=== PATIENT | female | born 1990 | race Asian ===

== ENCOUNTER 2018-02-04 16:13 | Emergency (ER) | payer OTHER ==
[~2018-02-04] VITALS: Ht 154.9 cm; Wt 63.5 kg
[2018-02-04] MEDS ORDERED: IV NORMAL SALINE 1000ML BAG 1,000 ML IV SCH (19:44)
[2018-02-04] MEDS ORDERED: PROCHLORPERAZINE 10 MG/2 ML VIAL. IV ONE (19:45)
[2018-02-04 20:20] LABS: BILIRUBIN,URINE NEGATIVE (NEG); CLARITY,URINE CLEAR; COLOR,URINE YELLOW; NITRITE,URINE NEGATIVE (NEG); PROTEIN,URINE NEGATIVE (NEG-TRACE)
[2018-02-04 20:21] LABS: BASO % 1 % (0-3); EOS # 0.1 x10^3/uL (0.0-0.7); EOS % 2 % (0-3); HEMATOCRIT 37.5 % (36.0-47.0); HEMOGLOBIN 12.8 g/dL (12.0-15.5); LYMPH # 1.9 x10^3/uL (1.0-4.8); LYMPH % 29 % (24-48); MEAN CORPUSCULAR HEMOGLOBIN 31 pg (25-35); MEAN CORPUSCULAR HGB CONC 34 g/dL (31-37); MEAN CORPUSCULAR VOLUME 89 fL (79-100); MONO # 0.8 x10^3/uL (0.0-1.1); MONO % 11 % (0-9); NEUT # 3.8 x10^3uL (1.8-7.7); NEUT % 57 % (31-73); PLATELET COUNT 148 x10^3/uL (140-400); RED CELL DISTRIBUTION WIDTH 13.7 % (11.5-14.5); WHITE BLOOD COUNT 6.7 x10^3/uL (4.0-11.0)
[2018-02-04 20:33] LABS: CALCIUM 9.1 mg/dL (8.5-10.1); CREATININE 0.5 mg/dL (0.6-1.0); GFR 145.9; POTASSIUM 3.8 mmol/L (3.5-5.1)
[2018-02-04 20:35] LABS: BACTERIA,URINE FEW /HPF (0-FEW); RBC,URINE OCC /HPF (0-2); SQUAMOUS EPITHELIAL CELL,UR FEW /LPF
[2018-02-04 20:44] LABS: ALBUMIN 3.9 g/dL (3.4-5.0); ALBUMIN/GLOBULIN RATIO 0.9 (1.0-1.7); TOTAL BILIRUBIN 0.6 mg/dL (0.2-1.0); TOTAL PROTEIN 8.3 g/dL (6.4-8.2)
[2018-02-04 20:48] LABS: PLT ESTIMATE ADEQUATE (ADEQUATE)
[2018-02-04 20:50] LABS: PROTHROMBIN TIME PATIENT 14.6 SEC (11.7-14.0)
[2018-02-04 21:00] VITALS: BP 104/60
[2018-02-04] MEDS ORDERED: AZIT250T6 PO (22:12)
[2018-02-04] MEDS ORDERED: NEOM10SO7 OT (22:12)
[2018-02-04] MEDS ORDERED: CARB-100 LEFT EAR (22:12)
[2018-02-04] MEDS ORDERED: METO10TA81 PO (22:12)
[2018-02-04] MEDS ORDERED: ACET325T9 PO (22:13)
--- NOTE | 2018-02-04 22:13 | PHYS DOC ---
Past Medical History Past Medical History: No Pertinent History Past Surgical History: No Surgical History Alcohol Use: None Drug Use: None Adult General Chief Complaint Chief Complaint: FEVER HPI HPI Patient is a 27 year old female who presents with multiple complaints. #1 she feels like she's had a fever for the past several days along with some cough and congestion. #2 some nausea and vomiting. No blood in the stool or emesis. Diffuse abdominal pain. No association with particular foods such as fatty once, or spicy ones. #3 vaginal bleeding. Patient is approximately 8 weeks with her last menstrual period being December 05, 2017. Patient has had a positive home test. Patient is 2 para 2002 due to a twin . #4 decreased hearing in left ear and left ear pain that started today. Nothing seems to make this better or worse. [] Review of Systems Review of Systems Constitutional: See history of present illness, denies chills or Reiger's[] Eyes: Denies change in visual acuity, redness, or eye pain [] HENT: Denies nasal congestion or sore throat [] Respiratory: Denies cough or shortness of breath [] Cardiovascular: No additional information not addressed in HPI [] GI: See history of present illness[] : Denies dysuria or hematuria, see history of present illness [] Musculoskeletal: Denies back pain or joint pain [] Integument: Denies rash or skin lesions [] Neurologic: Denies headache, focal weakness or sensory changes [] Endocrine: Denies polyuria or polydipsia [] All other systems were reviewed and found to be within normal limits, except as documented in this note. Current Medications Current Medications Current Medications Medications (Trade) Dose Ordered Sig/Devan Start Time Stop Time Status Last Admin Dose Admin Prochlorperazine Edisylate (Compazine) 5 mg 1X ONCE 02/04/18 19:45 02/04/18 19:46 UNV Sodium Chloride 1,000 ml @ 1,000 mls/hr Q1H 02/04/18 19:44 02/04/18 20:43 DC 02/04/18 20:35 1,000 MLS/HR Allergies Allergies Allergies Coded Allergies Type Severity Reaction Last Updated Verified No Known Drug Allergies 02/04/18 No Physical Exam Physical Exam Constitutional: Well developed, well nourished, no acute distress, non-toxic appearance. [] HENT: Normocephalic, atraumatic, bilateral external ears normal, left TM obscured by cerumen. Mild pain with tragus tug. Oropharynx moist, no oral exudates, nose normal. [] Eyes: PERRLA, EOMI, conjunctiva normal, no discharge. [] Neck: Normal range of motion, no tenderness, supple, no stridor. [] Cardiovascular:Heart rate regular rhythm, no murmur [] Lungs & Thorax: Bilateral breath sounds clear to auscultation [] Abdomen: Bowel sounds normal, soft, mild epigastric tenderness, no masses, no pulsatile masses. Negative Wilson's sign, no McBurney's point tenderness exam: Performed with research attorney: External genitalia normal, no masses no external bleeding. Vaginal vault: Normal, no blood in the vault. Cervix: Parous os, no cervical motion tenderness, no bleeding[] Skin: Warm, dry, no erythema, no rash. [] Back: No tenderness, no CVA tenderness. [] Extremities: No tenderness, no cyanosis, no clubbing, ROM intact, no edema. [] Neurologic: Alert and oriented X 3, normal motor function, normal sensory function, no focal deficits noted. [] Psychologic: Affect normal, judgement normal, mood normal. [] Current Patient Data Vital Signs Vital Signs Date Time Temp Pulse Resp B/P (MAP) Pulse Ox O2 Delivery O2 Flow Rate FiO2 02/04/18 18:37 98.3 69 16 117/79 (92) 100 Room Air 98.3 Lab Values Laboratory Tests Test 02/04/18 19:23 02/04/18 19:24 02/04/18 20:15 02/04/18 20:30 Urine Collection Type Unknown Urine Color Yellow Urine Clarity Clear Urine pH 6.0 Urine Specific [place] 1.015 Urine Protein Negative mg/dL (NEG-TRACE) Urine Glucose (UA) Negative mg/dL (NEG) Urine Ketones (Stick) Negative mg/dL (NEG) Urine Blood Trace (NEG) Urine Nitrite Negative (NEG) Urine Bilirubin Negative (NEG) Urine Urobilinogen Dipstick 1.0 mg/dL (0.2 mg/dL) Urine Leukocyte Esterase Moderate (NEG) Urine RBC Occ /HPF (0-2) Urine WBC 1-4 /HPF (0-4) Urine Squamous Epithelial Cells Few /LPF Urine Bacteria Few /HPF (0-FEW) Urine Mucus Slight /LPF POC Urine HCG, Qualitative Hcg positive (Negative) White Blood Count 6.7 x10^3/uL (4.0-11.0) Red Blood Count 4.20 x10^6/uL (3.50-5.40) Hemoglobin 12.8 g/dL (12.0-15.5) Hematocrit 37.5 % (36.0-47.0) Mean Corpuscular Volume 89 fL (79-100) Mean Corpuscular Hemoglobin 31 pg (25-35) Mean Corpuscular Hemoglobin Concent 34 g/dL (31-37) Red Cell Distribution Width 13.7 % (11.5-14.5) Platelet Count 148 x10^3/uL (140-400) Neutrophils (%) (Auto) 57 % (31-73) Lymphocytes (%) (Auto) 29 % (24-48) Monocytes (%) (Auto) 11 % (0-9) H Eosinophils (%) (Auto) 2 % (0-3) Basophils (%) (Auto) 1 % (0-3) Neutrophils # (Auto) 3.8 x10^3uL (1.8-7.7) Lymphocytes # (Auto) 1.9 x10^3/uL (1.0-4.8) Monocytes # (Auto) 0.8 x10^3/uL (0.0-1.1) Eosinophils # (Auto) 0.1 x10^3/uL (0.0-0.7) Basophils # (Auto) 0.0 x10^3/uL (0.0-0.2) Platelet Estimate Adequate (ADEQUATE) Giant Platelets Occ Maternal Serum HCG Beta Subunit 183059 mIU/mL (0-5) H Sodium Level 136 mmol/L (136-145) Potassium Level 3.8 mmol/L (3.5-5.1) Chloride Level 101 mmol/L (98-107) Carbon Dioxide Level 21 mmol/L (21-32) Anion Gap 14 (6-14) Blood Urea Nitrogen 9 mg/dL (7-20) Creatinine 0.5 mg/dL (0.6-1.0) L Estimated GFR (Cockcroft-Gault) 145.9 BUN/Creatinine Ratio 18 (6-20) Glucose Level 95 mg/dL (70-99) Calcium Level 9.1 mg/dL (8.5-10.1) Total Bilirubin 0.6 mg/dL (0.2-1.0) Aspartate Amino Transferase (AST) 32 U/L (15-37) Alanine Aminotransferase (ALT) 40 U/L (14-59) Alkaline Phosphatase 63 U/L (46-116) Total Protein 8.3 g/dL (6.4-8.2) H Albumin 3.9 g/dL (3.4-5.0) Albumin/Globulin Ratio 0.9 (1.0-1.7) L Lipase 162 U/L (73-393) Prothrombin Time 14.6 SEC (11.7-14.0) H Prothrombin Time INR 1.2 (0.8-1.1) H Laboratory Tests 02/04/18 20:15 Laboratory Tests 02/04/18 20:15 EKG EKG [] Radiology/Procedures Radiology/Procedures Pelvic ultrasound showed a 7 week 3 day IUP with subchorionic small hemorrhage. There is positive heart motion. Chest and performed of the gallbladder showed gallstones, no evidence of choledocholithiasis, no evidence of cholecystitis[] Course & Med Decision Making Course & Med Decision Making Pertinent Labs and Imaging studies reviewed. (See chart for details) ED course: Patient arrived, was placed in bed, and tolerated exam well. Patient had IV fluids as well as antiemetics administered which didn't improve the nausea. Patient was by mouth tolerant while in the emergency department. Patient had ultrasound performed while in the exam room which is noted above and tolerated the procedure well. After return of the lab and imaging studies, these were discussed with the patient and her who voiced understanding. All questions were answered. Medical decision making: There is no evidence of a septic miscarriage. This appears to be a threatened miscarriage given the bleeding and the small subchorionic hemorrhage. No evidence of Rh mismatch given that the patient is AB +. No evidence of significant neurologic slight abnormalities nor starvation state given that the patient is ketone negative and her urine. No evidence of urinary tract infection. Patient also appears to have cerumen impaction that was improved with the irrigation. Will prescribe treatment for this as well as some otitis externa which may of developed as the patient was trying to remove the cerumen blockage. No evidence of mastoiditis.[] Isaac Disclaimer Dragon Disclaimer This electronic medical record was generated, in whole or in part, using a voice recognition dictation system. Departure Departure Impression: Primary Impression: Threatened miscarriage Additional Impressions: Cough Febrile illness Cerumen impaction Otitis externa Nausea and vomiting Disposition: 01 HOME, SELF-CARE Condition: GOOD Referrals: JUAQUIN ROJAS MD (PCP) Follow-up in 2 days Patient Instructions: Cerumen Impaction, Cough, Adult, Fever, Nausea and Vomiting, Otitis Externa, Threatened Miscarriage Additional Instructions: Drink plenty of fluids, frequent small sips. No fatty foods, no milk, and no pepper for the next 48 hours. For the next 48 hours eat a diet rich in carbohydrates with foods such as bananas, rice, applesauce, and toast. Follow-up with your regular doctor in 2 days. Do not use any ibuprofen or naproxen while you are . Do not put anything in the vaginano tampons, no douching, no sexual intercourse. Return to the ER if worsening pain, unable to tolerate oral intake, worsening vaginal bleeding, or any other concerns. Scripts Acetaminophen (TYLENOL) 325 Mg Tablet 1-2 TAB PO QID, #60 TAB 0 Refills Prov: HOLLIS MCMILLAN DO 02/04/18 Neomycin/Polymyxin B Sulf/Hc (AQBZXGWB-[id number]-FN EAR SOLN) 10 Ml Solution 4 DROP OT QID for 7 Days, MISC Prov: HOLLIS MCMILLAN DO 02/04/18 Azithromycin (AZITHROMYCIN TABLET) 250 Mg Tablet 1 PKG PO UD, #6 TAB Prov: DEANNMICHELLEHOLLIS THOMPSON DO 02/04/18 Carbamide Peroxide (Murine Ear Drops) 15 Ml Drops 5-10 DROP LEFT EAR BID for 4 Days, DROP Prov: HOLLIS MCMILLAN DO 02/04/18 Metoclopramide Hcl (REGLAN) 10 Mg Tablet 10 MG PO QIDACHS, #30 TAB 0 Refills Prov: HOLLIS MCMILLAN DO 02/04/18 Problem Qualifiers Additional Impressions: Cerumen impaction Laterality: left Qualified Codes: H61.22 - Impacted cerumen, left ear Otitis externa Otitis externa type: unspecified type Chronicity: acute Laterality: left Qualified Codes: H60.502 - Unspecified acute noninfective otitis externa, left ear Nausea and vomiting Vomiting type: unspecified Vomiting Intractability: non-intractable Qualified Codes: R11.2 - Nausea with vomiting, unspecified HOLLIS MCMILLAN DO Feb 04, 2018 22:13
--- NOTE | 2018-02-04 23:31 | RAD ---
Examination: PREG 1ST TRIMESTER History: spotting, , upper abd pain Comparison/Correlation: None Findings: Transabdominal pelvic ultrasound exam was performed. Uterus measures 10 cm x 6.2 cm x 5.4 cm. Myometrium is unremarkable. Single intrauterine gestation is present with heart rate of 169 bpm. [place]-rump length of 1.1 cm correspond to 7 weeks 2 days gestation. Yolk sac identified. Gestational sac is unremarkable. Subchorionic hemorrhage is present measuring 1.9 cm x 1.4 cm x 0.3 cm. Right ovary measures 2.5 cm x 2.5 cm which is seen. Left ovary measures 2.17 x 2 cm x 1.5 cm. Left adnexal follicle measuring 1.3 cm diameter is present. No suspicious adnexal process. No evidence of ovarian torsion. Normal spectral Doppler imaging of the ovaries identified. Color Doppler imaging is unremarkable. Cholelithiasis is present without findings of cholecystitis. Impression: Single living intrauterine gestation with crown-rump length corresponding to 7 weeks 2 day gestation. Small subchorionic hemorrhage. Electronically signed by: Abenr Martinez MD (02/04/2018 11:27 PM) [facility]
[2018-02-06 13:25] LABS: GC PROBE Negative (Negative)
== END 2018-02-04 22:37 | disposition home or self-care (01) ==
LOC: ER 16:13
DX: O20.0 Threatened abortion (principal); O21.9 Vomiting of pregnancy, unspecified; H61.22 Impacted cerumen, left ear; H60.92 Unspecified otitis externa, left ear; Z3A.08 8 weeks gestation of pregnancy
CPT/HCPCS: 36415; 76801; 80053; 81001; 81025; 83690; 84702; 85025; 85610; 86900; 86901; 87491; 87591; 96360; 99284; J7030; Q0111

== ENCOUNTER 2018-05-21 19:59 | Emergency (ER) | payer OTHER ==
[~2018-05-21] VITALS: Ht 147.3 cm; Wt 65.8 kg
[~2018-05-21 19:59] MED LIST: ACET325T9 PO; AZIT250T6 PO; CARB-100 LEFT EAR; METO10TA81 PO; NEOM10SO7 OT
[2018-05-21] MEDS ORDERED: AMOX1TAB61 PO (21:22)
[2018-05-21] MEDS ORDERED: NEOM10DR32 EACH EAR (21:22)
--- NOTE | 2018-05-21 21:22 | PHYS DOC ---
Past Medical History Past Medical History: GERD, Hypothyroid Past Surgical History: No Surgical History Alcohol Use: None Drug Use: None Adult General Chief Complaint Chief Complaint: EARACHE/EAR PAIN HPI HPI Patient is a 28 year old female who presents with left ear pain since four o' clock this afternoon. Patient describes the pain as shooting and constant and rates it to be 10/10. Patient states that her left ear was itchy this morning so she used a Q-tip to itch it. Patient denies recent swimming. Patient states that she had a similar episode about three months ago for which she was treated with antibiotic drops. Patient denies any drainage or blood from her left ear. She also reports nausea and three episodes of nonbloody, nonbilious vomiting today. Patient is currently 23 weeks . She denies any abdominal pain, diarrhea, vaginal discharge, or vaginal bleeding. Review of Systems Review of Systems Constitutional: Denies fever or chills. Eyes: Denies change in visual acuity or eye pain. HENT: Denies nasal congestion or sore throat. Respiratory: Reports cough. Denies shortness of breath. Cardiovascular: Denies chest pain or palpitations. GI: Denies abdominal pain or diarrhea. : Denies dysuria or hematuria. Musculoskeletal: Denies back pain or joint pain. Integument: Denies rash or skin lesions. Neurologic: Denies focal weakness or sensory changes Complete systems were reviewed and found to be within normal limits, except as documented in this note. Current Medications Current Medications Current Medications Medications (Trade) Dose Ordered Sig/[facility] Start Time Stop Time Status Last Admin Dose Admin Acetaminophen (Tylenol) 500 mg 1X ONCE 05/21/18 21:30 05/21/18 21:31 05/21/18 21:21 500 MG Dexamethasone (Decadron) 10 mg 1X ONCE 05/21/18 21:30 05/21/18 21:31 05/21/18 21:21 10 MG Ondansetron HCl (Zofran Odt) 4 mg 1X ONCE 05/21/18 21:30 05/21/18 21:31 05/21/18 21:21 4 MG Allergies Allergies Allergies Coded Allergies Type Severity Reaction Last Updated Verified No Known Drug Allergies 02/04/18 No Physical Exam Physical Exam Constitutional: Well developed, well nourished, no acute distress. HENT: Normocephalic, atraumatic,oropharynx moist, no oral exudates. Cerumen noted in bilateral ear canals. Erythema noted in left ear canal. Subjective pain noted with pulling of the tragus and pinna. Eyes: PERRL,conjunctiva normal without erythema. Neck: Normal range of motion, no tenderness, supple. Cardiovascular:Heart rate regular rhythm, no murmur. Lungs & Thorax: Bilateral breath sounds clear to auscultation [] Abdomen: Gravid uterus, soft, no tenderness. Skin: Warm, dry, no rash. Back: No tenderness, no CVA tenderness. Extremities: No tenderness, ROM intact, no edema. [] Neurologic: Alert and oriented X 3, normal motor function, normal sensory function, no focal deficits noted. Psychologic: Affect normal. Normal speech. Current Patient Data Vital Signs Vital Signs Date Time Temp Pulse Resp B/P (MAP) Pulse Ox O2 Delivery O2 Flow Rate FiO2 05/21/18 20:16 98.4 94 20 110/66 (81) 100 Room Air 98.4 EKG EKG [] Radiology/Procedures Radiology/Procedures [] Course & Med Decision Making Course & Med Decision Making Pertinent Labs and Imaging studies reviewed. (See chart for details) Patient is a 28 year old female who presents to the ED for evaluation of left ear pain. Patient treated with Dexamethasone, Zofran and Tylenol in the ED for swelling, pain and nausea. Due to erythema in the left ear canal, history of otitis externa, and pain with pulling of the tragus and pinna, patient will be prescribed antibiotic ear drops for otitis externa. Patient instructed to take Tylenol as needed at home for pain and discomfort. Will give patient a prescription for Zofran to take for nausea as needed. A prescription will be given for Augmentin because of possibility of otitis media, as the TM cannot be fully visualized due to large amount of cerumen. Patient was instructed to wait 48 hours after starting antibiotic ear drops before taking the Augmentin to see if symptoms improve with drops. Patient stable for discharge with outpatient follow-up with PCP. Discussed findings and plan with patient and family, who acknowledge understanding and agreement. Dragon Disclaimer Dragon Disclaimer This electronic medical record was generated, in whole or in part, using a voice recognition dictation system. Departure Departure Impression: Primary Impression: Otitis externa Disposition: 01 HOME, SELF-CARE Condition: STABLE Referrals: JUAQUIN ROJAS MD (PCP) Patient Instructions: Otitis Externa, [id number] Additional Instructions: Hold oral (Augmentin) antibiotics for 48 hours. If symptoms worsen or for fever > 100.3 F after 48 hours then start antibiotics as prescribed. Take Tylenol for pain or discomfort. Scripts Amoxicillin/Potassium Clav (AUGMENTIN 875-125 TABLET) 1 Each Tablet 1 TAB PO BID, #14 TAB Prov: NISH CARVAJAL DO 05/21/18 Neomycin/Polymyxin B Sulf/Hc (GCQSTSSP-RYKOAMBXN-PD EAR SUSP) 10 Ml Drops.susp 4 DROP EACH EAR TID, #10 ML Prov: NISH CARVAJAL DO 05/21/18 Problem Qualifiers Primary Impression: Otitis externa Otitis externa type: unspecified type Chronicity: acute Laterality: left Qualified Codes: H60.502 - Unspecified acute noninfective otitis externa, left ear NISH CARVAJAL DO May 21, 2018 21:22
[2018-05-21 21:25] VITALS: BP 116/59
[2018-05-21] MEDS ORDERED: ONDANSETRON ODT 4 MG TAB.RAPDIS. PO ONE (21:30)
[2018-05-21] MEDS ORDERED: DEXAMETHASONE 4 MG TABLET PO ONE (21:30)
[2018-05-21] MEDS ORDERED: ACETAMINOPHEN 500 MG TABLET PO ONE (21:30)
== END 2018-05-21 21:55 | disposition home or self-care (01) ==
LOC: ER 19:59
DX: O26.892 Other specified pregnancy related conditions, second trimester (principal); H60.502 Unspecified acute noninfective otitis externa, left ear; O21.9 Vomiting of pregnancy, unspecified; O99.612 Diseases of the digestive system complicating pregnancy, second trimester; K21.9 Gastro-esophageal reflux disease without esophagitis; O99.282 Endocrine, nutritional and metabolic diseases complicating pregnancy, second trimester; E03.9 Hypothyroidism, unspecified; Z3A.23 23 weeks gestation of pregnancy
CPT/HCPCS: 99284; J8540; Q0162

== ENCOUNTER 2019-08-23 15:07 | Emergency (ER) | payer OTHER ==
[~2019-08-23] VITALS: Ht 149.9 cm; Wt 67.2 kg
[~2019-08-23 15:07] MED LIST changes: +AMOX1TAB61 PO; +NEOM10DR32 EACH EAR
[2019-08-23 15:56] LABS: BILIRUBIN,URINE NEGATIVE (NEG); COLOR,URINE YELLOW; NITRITE,URINE NEGATIVE (NEG); PROTEIN,URINE NEGATIVE (NEG-TRACE); UROBILINOGEN,URINE 0.2 mg/dL (0.2 mg/dL)
[2019-08-23 15:57] LABS: CLARITY,URINE HAZY
[2019-08-23 16:13] LABS: BACTERIA,URINE 0 /HPF (0-FEW); RBC,URINE TNTC /HPF (0-2); SQUAMOUS EPITHELIAL CELL,UR MOD /LPF
[2019-08-23 16:14] LABS: BASO # 0.1 x10^3/uL (0.0-0.2); BASO % 1 % (0-3); EOS # 0.1 x10^3/uL (0.0-0.7); EOS % 1 % (0-3); HEMATOCRIT 32.1 % (36.0-47.0); HEMOGLOBIN 11.1 g/dL (12.0-15.5); LYMPH # 1.9 x10^3/uL (1.0-4.8); LYMPH % 19 % (24-48); MEAN CORPUSCULAR HEMOGLOBIN 29 pg (25-35); MEAN CORPUSCULAR HGB CONC 35 g/dL (31-37); MEAN CORPUSCULAR VOLUME 83 fL (79-100); MONO # 0.9 x10^3/uL (0.0-1.1); MONO % 9 % (0-9); NEUT # 6.7 x10^3/uL (1.8-7.7); NEUT % 69 % (31-73); PLATELET COUNT 228 x10^3/uL (140-400); RED BLOOD COUNT 3.86 x10^6/uL (3.50-5.40); RED CELL DISTRIBUTION WIDTH 14.1 % (11.5-14.5); WHITE BLOOD COUNT 9.6 x10^3/uL (4.0-11.0)
[2019-08-23 16:24] LABS: CALCIUM 8.3 mg/dL (8.5-10.1); CREATININE 0.7 mg/dL (0.6-1.0); GFR 97.6
[2019-08-23 16:27] LABS: ALBUMIN 3.6 g/dL (3.4-5.0); ALBUMIN/GLOBULIN RATIO 0.9 (1.0-1.7); TOTAL BILIRUBIN 0.3 mg/dL (0.2-1.0); TOTAL PROTEIN 7.6 g/dL (6.4-8.2)
[2019-08-23] MEDS ORDERED: IV NORMAL SALINE 1000ML BAG 1,000 ML IV ONE (16:30)
[2019-08-23 16:49] LABS: PREG TEST PT QUAL NEGATIVE (NEG)
[2019-08-23 17:51] VITALS: BP 108/71
[2019-08-23] MEDS ORDERED: DOCU-109 PO (18:02)
[2019-08-23] MEDS ORDERED: FERR325T14 PO (18:02)
--- NOTE | 2019-08-24 11:23 | PHYS DOC ---
Past Medical History Past Medical History: Hypothyroid Past Surgical History: No Surgical History Smoking Status: Never Smoker Alcohol Use: None Drug Use: None General Adult EDM: Chief Complaint: DIZZY/LIGHT HEADED HPI: HPI: Patient is a 29 year old [f__sex] who presents with [] Review of Systems: Review of Systems: Constitutional: Denies fever or chills. [] Eyes: Denies change in visual acuity. [] HENT: Denies nasal congestion or sore throat. [] Respiratory: Denies cough or shortness of breath. [] Cardiovascular: Denies chest pain or edema. [] GI: Denies abdominal pain, nausea, vomiting, bloody stools or diarrhea. [] : Denies dysuria. [] Musculoskeletal: Denies back pain or joint pain. [] Integument: Denies rash. [] Neurologic: Denies headache, focal weakness or sensory changes. [] Endocrine: Denies polyuria or polydipsia. [] Lymphatic: Denies swollen glands. [] Psychiatric: Denies depression or anxiety. [] Heart Score: Risk Factors: Risk Factors: DM, Current or recent (<one month) smoker, HTN, HLP, family history of CAD, obesity. Risk Scores: Score 0 - 3: 2.5% MACE over next 6 weeks - Discharge Home Score 4 - 6: 20.3% MACE over next 6 weeks - Admit for Clinical Observation Score 7 - 10: 72.7% MACE over next 6 weeks - Early Invasive Strategies Current Medications: Current Medications Medications (Trade) Dose Ordered Sig/Devan Start Time Stop Time Status Last Admin Dose Admin Sodium Chloride 1,000 ml @ 0 mls/hr 1X ONCE 08/23/19 16:30 08/23/19 16:31 DC 08/23/19 16:40 999 MLS/HR Allergies: Allergies: Allergies Coded Allergies Type Severity Reaction Last Updated Verified No Known Drug Allergies 02/04/18 No Physical Exam: PE: Constitutional: Well developed, well nourished, no acute distress, non-toxic appearance. [] HENT: Normocephalic, atraumatic, bilateral external ears normal, oropharynx moist, no oral exudates, nose normal. [] Eyes: PERRLA, EOMI, conjunctiva normal, no discharge. [] Neck: Normal range of motion, no tenderness, supple, no stridor. [] Cardiovascular:Heart rate regular rhythm, no murmur [] Lungs & Thorax: Bilateral breath sounds clear to auscultation [] Abdomen: Bowel sounds normal, soft, no tenderness, no masses, no pulsatile masses. [] Skin: Warm, dry, no erythema, no rash. [] Back: No tenderness, no CVA tenderness. [] Extremities: No tenderness, no cyanosis, no clubbing, ROM intact, no edema. [] Neurologic: Alert and oriented X 3, normal motor function, normal sensory function, no focal deficits noted. [] Psychologic: Affect normal, judgement normal, mood normal. [] Current Patient Data: Labs: Laboratory Tests Test 08/23/19 15:49 08/23/19 16:07 Urine Collection Type Unknown Urine Color Yellow Urine Clarity Hazy Urine pH 6.0 (<5.0-8.0) Urine Specific [place] 1.010 (1.000-1.030) Urine Protein Negative mg/dL (NEG-TRACE) Urine Glucose (UA) Negative mg/dL (NEG) Urine Ketones (Stick) Negative mg/dL (NEG) Urine Blood Large (NEG) Urine Nitrite Negative (NEG) Urine Bilirubin Negative (NEG) Urine Urobilinogen Dipstick 0.2 mg/dL (0.2 mg/dL) Urine Leukocyte Esterase Moderate (NEG) Urine RBC Tntc /HPF (0-2) Urine WBC 1-4 /HPF (0-4) Urine Squamous Epithelial Cells Mod /LPF Urine Bacteria 0 /HPF (0-FEW) White Blood Count 9.6 x10^3/uL (4.0-11.0) Red Blood Count 3.86 x10^6/uL (3.50-5.40) Hemoglobin 11.1 g/dL (12.0-15.5) L Hematocrit 32.1 % (36.0-47.0) L Mean Corpuscular Volume 83 fL (79-100) Mean Corpuscular Hemoglobin 29 pg (25-35) Mean Corpuscular Hemoglobin Concent 35 g/dL (31-37) Red Cell Distribution Width 14.1 % (11.5-14.5) Platelet Count 228 x10^3/uL (140-400) Neutrophils (%) (Auto) 69 % (31-73) Lymphocytes (%) (Auto) 19 % (24-48) L Monocytes (%) (Auto) 9 % (0-9) Eosinophils (%) (Auto) 1 % (0-3) Basophils (%) (Auto) 1 % (0-3) Neutrophils # (Auto) 6.7 x10^3/uL (1.8-7.7) Lymphocytes # (Auto) 1.9 x10^3/uL (1.0-4.8) Monocytes # (Auto) 0.9 x10^3/uL (0.0-1.1) Eosinophils # (Auto) 0.1 x10^3/uL (0.0-0.7) Basophils # (Auto) 0.1 x10^3/uL (0.0-0.2) Sodium Level 141 mmol/L (136-145) Potassium Level 4.0 mmol/L (3.5-5.1) Chloride Level 108 mmol/L (98-107) H Carbon Dioxide Level 20 mmol/L (21-32) L Anion Gap 13 (6-14) Blood Urea Nitrogen 4 mg/dL (7-20) L Creatinine 0.7 mg/dL (0.6-1.0) Estimated GFR (Cockcroft-Gault) 97.6 BUN/Creatinine Ratio 6 (6-20) Glucose Level 98 mg/dL (70-99) Calcium Level 8.3 mg/dL (8.5-10.1) L Total Bilirubin 0.3 mg/dL (0.2-1.0) Aspartate Amino Transferase (AST) 23 U/L (15-37) Alanine Aminotransferase (ALT) 30 U/L (14-59) Alkaline Phosphatase 73 U/L (46-116) Total Protein 7.6 g/dL (6.4-8.2) Albumin 3.6 g/dL (3.4-5.0) Albumin/Globulin Ratio 0.9 (1.0-1.7) L Thyroid Stimulating Hormone (TSH) 0.070 uIU/mL (0.358-3.74) L Free Thyroxine 1.10 ng/dL (0.76-1.46) Serum Test, Qualitative Negative (NEG) Laboratory Tests 08/23/19 16:07 Laboratory Tests 08/23/19 16:07 Vital Signs: Vital Signs Date Time Temp Pulse Resp B/P (MAP) Pulse Ox O2 Delivery O2 Flow Rate FiO2 08/23/19 17:51 84 99 08/23/19 15:20 98.7 17 132/77 (95) Room Air 98.7 EKG: EKG: [] Radiology/Procedures: Radiology/Procedures: [] Course & Med Decision Making: Course & Med Decision Making Pertinent Labs and Imaging studies reviewed. (See chart for details) [] Dragon Disclaimer: Dragon Disclaimer: This electronic medical record was generated, in whole or in part, using a voice recognition dictation system. Departure Departure Impression: Primary Impression: Fatigue Disposition: HOME, SELF-CARE Condition: STABLE Patient Instructions: Weakness, [id number], Dizziness, [id number] Additional Instructions: Recommend following up with PCP for possible further testing such as autoimmune or depression screening. Scripts Docusate Sodium (COLACE) 100 Mg Capsule 1 CAP PO BID for 7 Days, #14 CAP 0 Refills Prov: PALMIRA MANTILLA MD 08/23/19 Ferrous Sulfate (FERROUS SULFATE) 325 Mg Tablet 1 TAB PO BID for 7 Days, #14 TAB 3 Refills Prov: PALMIRA MANTILLA MD 08/23/19 Justicifation of Admission Dx: Justifications for Admission: Justification of Admission Dx: No PALMIRA MANTILLA MD Aug 24, 2019 11:23
--- NOTE | 2019-08-26 06:53 | EKG ---
[facility] [address] [place] [address] Test Date: 2019-08-23 Test Time: 15:35:57 Pat Name: CANDELARIA MICHAEL Department: Room: Gender: F Adult Nurse Practitioner: : [id number] Requested By: PALMIRA MANTILLA Order Number: [id number] Reading MD: Measurements Intervals [place] Rate: 104 P: 28 CT: 144 QRS: 62 QRSD: 80 T: 32 QT: 330 QTc: 434 Interpretive Statements SINUS TACHYCARDIA OTHERWISE NORMAL ECG RI6.02 No previous ECG available for comparison
== END 2019-08-23 18:20 | disposition home or self-care (01) ==
LOC: ER 15:07
DX: R53.83 Other fatigue (principal); R42 Dizziness and giddiness; R11.0 Nausea; E03.9 Hypothyroidism, unspecified
CPT/HCPCS: 36415; 80053; 81001; 84439; 84443; 84703; 85025; 93005; 99285; J7030

== ENCOUNTER 2020-05-23 22:12 | Emergency (ER) | payer OTHER ==
[~2020-05-23] VITALS: Ht 154.9 cm; Wt 66.6 kg
[~2020-05-23 22:12] MED LIST changes: +DOCU-109 PO; +FERR325T14 PO
[2020-05-23 22:33] VITALS: BP 118/79
[2020-05-23] MEDS ORDERED: FLUORESCEIN OPHTH TEST STRIP. OD ONE (22:45)
[2020-05-23] MEDS ORDERED: TETRACAINE 0.5% OPHTH SOLUTION 4ML BOTTLE. OD ONE (23:00)
[2020-05-23] MEDS ORDERED: ACET1TAB33 PO (23:13)
[2020-05-23] MEDS ORDERED: erythromycin (23:13)
--- NOTE | 2020-05-23 23:14 | PHYS DOC ---
Past Medical History Past Medical History: Hypothyroid Past Surgical History: No Surgical History Smoking Status: Never Smoker Alcohol Use: None Drug Use: None General Adult EDM: Chief Complaint: FOREIGN BODY/EYES HPI: HPI: Patient is a 30 year old male presents for evaluation after right eye injury. Patient was bending down when she accidentally poked her right eye. Patient does not know what she injured her right eye on. After injury there is no loss of consciousness. Patient immediately had pain in her right eye. Patient has difficulty opening her right eye due to pain. When I initially examined the patient patient had a right eye closed for comfort. Tetracaine drops were used and patient was able to open her right eye. Upper and lower eyelids and examined no foreign bodies identified. Fluorescein stain was used and there was a dye uptake at the 4-5 o'clock position. Ocular pressures obtained were consistently at 15. Patients eye exam PERRLA and EOMI. Review of Systems: Review of Systems: Review of systems: Constitutional symptoms- No fever, no chills. Eyes-positive eye pain Respiratory symptoms- No shortness of breath, No wheezing, No Dyspnea on Exertion Cardiovascular Systems; No chest pain, No Palpitations, No syncope Gastrointestinal symptoms: NO abdominal pain, no nausea, no vomiting or diarrhea. Genitourinary symptoms: No dysuria. Musculoskeletal symptoms: No back pain No extremity pain. NEUROLOGICAL Symptoms: No headache, no generalized weakness; No focal Weakness Heart Score: C/O Chest Pain: N/A Risk Factors: Risk Factors: DM, Current or recent (<one month) smoker, HTN, HLP, family history of CAD, obesity. Risk Scores: Score 0 - 3: 2.5% MACE over next 6 weeks - Discharge Home Score 4 - 6: 20.3% MACE over next 6 weeks - Admit for Clinical Observation Score 7 - 10: 72.7% MACE over next 6 weeks - Early Invasive Strategies Current Medications: Current Medications Medications (Trade) Dose Ordered Sig/Devan Start Time Stop Time Status Last Admin Dose Admin Fluorescein Sodium (Ful-Regina) 1 strip 1X ONCE 05/23/20 22:45 05/23/20 22:46 DC 05/23/20 22:52 1 STRIP Tetracaine HCl (Tetracaine) 1 drop 1X ONCE 05/23/20 23:00 05/23/20 23:01 DC 05/23/20 22:52 1 DROP Allergies: Allergies: Allergies Coded Allergies Type Severity Reaction Last Updated Verified No Known Drug Allergies 02/04/18 No Physical Exam: PE: General: alert, no acute distress. Skin: warm, dry and intact. Head:: Normocephalic, atraumatic. Neck: Trachea midline. Eyes: EOMI, Normal conjunctiva, No drainage CARDIOVASCULAR: Regular rate and rhythm RESPIRATORY: No respiratory distress Back: Full range of motion. MUSCULOSKELETAL: Full range of motion of bilateral upper and lower extremities. GASTROINTESTINAL: Abdomen soft without rebound or guarding. NEUROLOGICAL: Alert and noted to person, place and time. No neurological deficits observed Psychiatric: Cooperative. Normal judgment Ocular Upper and lower eyelids and examined no foreign bodies identified. Fluorescein stain was used and there was a dye uptake at the 4-5 o'clock position. Ocular pressures obtained were consistently at 15. Patients eye exam PERRLA and EOMI. Current Patient Data: Vital Signs: Vital Signs Date Time Temp Pulse Resp B/P (MAP) Pulse Ox O2 Delivery O2 Flow Rate FiO2 05/23/20 22:33 98.7 92 18 118/79 (92) 99 Room Air 98.7 EKG: EKG: [] Radiology/Procedures: Radiology/Procedures: [] Course & Med Decision Making: Course & Med Decision Making Pertinent Labs and Imaging studies reviewed. (See chart for details) [] Dragon Disclaimer: Dragon Disclaimer: This electronic medical record was generated, in whole or in part, using a voice recognition dictation system. Departure Departure Impression: Primary Impression: Corneal abrasion Disposition: 01 [place] HOME SELF CARE/HOMELESS Condition: STABLE Referrals: JUAQUIN ROJAS MD (PCP) TANJA LEE MD Patient Instructions: Eye - Corneal Abrasion Scripts Acetaminophen With Codeine (ACETAMINOPHEN-COD #3 TABLET) 1 Each Tablet 1 TAB PO PRN Q4HRS PRN for PAIN, #10 TAB Prov: LORAINE RAI I DO 05/23/20 [erythromycin] 0.5 OINT No Conflict Check erythromycin ophthalmic oint:0.5% apply 1cm ribbon in eye up to 6x/day x 10 days Prov: LORAINE RAI I DO 05/23/20 LORAINE RAI I DO May 23, 2020 23:14
== END 2020-05-23 23:40 | disposition home or self-care (01) ==
LOC: ER 22:12
DX: S05.01XA Injury of conjunctiva and corneal abrasion without foreign body, right eye, initial encounter (principal); E03.9 Hypothyroidism, unspecified; X58.XXXA Exposure to other specified factors, initial encounter; Y93.89 Activity, other specified; Y92.89 Other specified places as the place of occurrence of the external cause; Y99.8 Other external cause status
CPT/HCPCS: 99283

== ENCOUNTER 2020-08-23 13:34 | Emergency (ER) | payer OTHER ==
[~2020-08-23] VITALS: Ht 147.3 cm; Wt 63.6 kg
[~2020-08-23 13:34] MED LIST changes: +ACET1TAB33 PO; +erythromycin
[2020-08-23 14:35] VITALS: BP 116/80
--- NOTE | 2020-08-23 14:37 | PHYS DOC ---
Past Medical History Past Medical History: Hypothyroid Past Surgical History: No Surgical History Smoking Status: Never Smoker Alcohol Use: None Drug Use: None General Adult EDM: Chief Complaint: EYE PROBLEMS HPI: HPI: Patient is a healthy 30-year-old female presenting for right upper eyelid problem. Onset was noticed this morning shortly after waking up without any known inciting event, trauma or exposure. Nothing known makes better or worse. She has no concerning comorbid conditions, is not immunocompromised Review of Systems: Review of Systems: Fourteen body systems of review of systems have been reviewed. See HPI for pertinent positives and negative responses, other jensen all other systems are negative, non-pertinent or non-contributory Heart Score: C/O Chest Pain: No Risk Factors: Risk Factors: DM, Current or recent (<one month) smoker, HTN, HLP, family history of CAD, obesity. Risk Scores: Score 0 - 3: 2.5% MACE over next 6 weeks - Discharge Home Score 4 - 6: 20.3% MACE over next 6 weeks - Admit for Clinical Observation Score 7 - 10: 72.7% MACE over next 6 weeks - Early Invasive Strategies Allergies: Allergies: Allergies Coded Allergies Type Severity Reaction Last Updated Verified No Known Drug Allergies 02/04/18 No Physical Exam: PE: Constitutional: Well developed, well nourished, no acute distress, non-toxic appearance. HENT: Normocephalic, atraumatic, bilateral external ears normal, oropharynx moist, no oral exudates, nose normal. Eyes: PERRLA, EOMI, conjunctiva normal, no discharge. Right upper eyelid inflamed without focal head or obvious follicular abnormalities or foreign bodies Neck: Normal range of motion, no tenderness, supple, no stridor. Cardiovascular: Heart rate regular, sinus rhythm, no murmurs rubs or gallops Lungs & Thorax: Bilateral breath sounds clear to auscultation Abdomen: Bowel sounds normal, soft, no tenderness, no masses, no pulsatile masses. Nonsurgical abdomen, no peritoneal signs Skin: Warm, dry, no erythema, no rash. Back: No tenderness, no CVA tenderness. Extremities: No tenderness, no cyanosis, no clubbing, ROM intact, no edema. Neurologic: Alert and oriented X 3, grossly normal motor & sensory function, no focal deficits noted. Psychologic: Affect normal, judgement normal, mood normal. Current Patient Data: Vital Signs: Vital Signs Date Time Temp Pulse Resp B/P (MAP) Pulse Ox O2 Delivery O2 Flow Rate FiO2 08/23/20 14:35 98.9 82 16 116/80 (92) 99 Room Air 98.9 Vital Signs Date Time Temp Pulse Resp B/P (MAP) Pulse Ox O2 Delivery O2 Flow Rate FiO2 08/23/20 14:35 98.9 82 16 116/80 (92) 99 Room Air 98.9 EKG: EKG: [] Radiology/Procedures: Radiology/Procedures: [] Course & Med Decision Making: Course & Med Decision Making ABCs unremarkable. I disclosed entirety of ER findings and discussed most likely diagnosis of right upper eyelid blepharitis. Supportive care practices advised. She is upset she is not getting any antibiotics, reassurance provided that evidence is nonconclusive for antibiotic or steroid use. As such, I stressed need for close outpatient follow-up to review today's ER visit. Strict return precautions were also discussed at length with good understanding by patient. Patient voiced understanding and agreement with the plan. Patient knows to come back for repeat evaluation if concerning signs or symptoms present pr ior to outpatient follow-up. Hemodynamically stable, ambulatory and well- appearing at time of disposition. Dragon Disclaimer: Dragon Disclaimer: This electronic medical record was generated, in whole or in part, using a voice recognition dictation system. Departure Departure Impression: Primary Impression: Blepharitis of right upper eyelid Disposition: HOME / SELF CARE / HOMELESS Condition: STABLE Referrals: JUAQUIN ROJAS MD (PCP) Patient Instructions: Blepharitis, [id number] Additional Instructions: As discussed, your vital signs and physical examination were nonconcerning for any emergent or surgical issues. You most likely have a diagnosis of blepharitis otherwise known as inflammation of the eyelid. Lid hygiene is the most important, it is advised to avoid eye make-up, apply warm compresses for at least 15 minutes 4 times a day, scrub with warm water and mild shampoo twice a day. As disclosed, there is no conclusive evidence for antibiotics and/or steroids. Please call your primary care physician first thing tomorrow to discuss need for close outpatient follow-up and potential ophthalmology consultation. If any concerning signs or symptoms present prior to outpatient follow-up please do not hesitate to come back for repeat evaluation. It was a pleasure to take care of you and I wish you the best going forward JOSE GUADALUPE GAMBOA DO Aug 23, 2020 14:37
== END 2020-08-23 15:34 | disposition home or self-care (01) ==
LOC: ER 13:34
DX: H01.001 Unspecified blepharitis right upper eyelid (principal); E03.9 Hypothyroidism, unspecified
CPT/HCPCS: 99281